=== PATIENT | male | born 1960 | race Caucasian/White ===

== ENCOUNTER 2018-04-20 12:05 | Inpatient (IN) | payer OTHER ==
[2018-04-20 12:45] LABS: ADD MAN DIFF? NO
[2018-04-20] MEDS: NITROGLYCERIN 2% 1 GM OINT PKT TD (12:46)
[2018-04-20] MEDS: NITROGLYCERIN (SL) 0.4 MG TAB SL (12:46)
[2018-04-20] MEDS: ASPIRIN 81 MG TAB PO (12:46)
[2018-04-20 13:06] LABS: WHITE BLOOD COUNT 11.6 10^3/ul (4.8-10.8)
[2018-04-20 13:06] LABS: BASOPHIL # 0.1 10^3/ul (0.0-0.1); BASOPHILS % 0.5 % (0.0-2.0); EOSINOPHILS # 0.4 10^3/ul (0.0-0.5); EOSINOPHILS % 3.5 % (0.0-7.0); HEMATOCRIT 39.7 % (42.0-52.0); HEMOGLOBIN 13.1 g/dl (14.0-18.0); LYMPHOCYTES # 1.7 10^3/ul (0.8-2.9); LYMPHOCYTES % 15.1 % (15.0-51.0); MEAN CORPUSCULAR HEMOGLOBIN 31.2 pg (29.0-33.0); MEAN CORPUSCULAR VOLUME 94.5 fl (82.0-101.0); MEAN PLATELET VOLUME 8.6 fl (7.4-10.4); MONOCYTE # 0.9 10^3/ul (0.3-0.9); NEUTROPHIL # 8.4 10^3/ul (1.6-7.5); NEUTROPHILS % 72.4 % (39.0-77.0); PLATELET COUNT 294 10^3/UL (140-415); RED CELL DISTRIBUTION WIDTH 13.4 % (11.5-14.5)
[2018-04-20 13:10] LABS: ANION GAP 12 (5-13); BLOOD UREA NITROGEN 28 mg/dl (7-20); CALCIUM 9.5 mg/dl (8.4-10.2); CARBON DIOXIDE 26 mmol/L (21-31); CHLORIDE 98 mmol/L (97-110); CREATININE 1.56 mg/dl (0.61-1.24); Estimated GFR 46 mL/min (>60); GLUCOSE 162 mg/dl (70-220); POTASSIUM 3.9 mmol/L (3.5-5.1); SODIUM 136 mmol/L (135-144)
[2018-04-20 13:22] LABS: TROPONIN-I < 0.012 ng/ml (0.000-0.120)
[2018-04-20] MEDS ORDERED: ACETAMINOPHEN 325 MG TAB PO (13:30)
[2018-04-20] MEDS ORDERED: ONDANSETRON 4 MG INJ IV (13:30)
[2018-04-20] MEDS ORDERED: ATENOLOL 50 MG TAB PO (17:00)
[2018-04-20] MEDS ORDERED: NITROGLYCERIN (SL) 0.4 MG TAB SL (17:00)
[2018-04-20] MEDS ORDERED: GLUCOSE GEL 15 GRAM TUBE BUCCAL (17:30)
[2018-04-20] MEDS ORDERED: GLUCAGON 1 MG INJ IM (17:30)
[2018-04-20] MEDS ORDERED: GLUCOSE GEL 15 GRAM TUBE PO ×2 (17:30)
[2018-04-20] MEDS ORDERED: DEXTROSE 50% 50 ML SYRINGE IV ×2 (17:30)
[2018-04-20] MEDS: SOD CHLORIDE 0.45% 1,000 ML IV (18:49)
[2018-04-20 19:33] LABS: CREATINE KINASE 119 IU/L (23-200)
[2018-04-20 19:44] LABS: CK INDEX 1.3; TROPONIN-I < 0.012 ng/ml (0.000-0.120)
[2018-04-20 19:44] LABS: TROPONIN-I < 0.012 ng/ml (0.000-0.120)
[2018-04-20] MEDS: MONTELUKAST 10 MG TAB PO (21:13)
[2018-04-20] MEDS: ZOLPIDEM 5 MG TAB PO (21:13)
[2018-04-21 01:21] LABS: CREATINE KINASE 104 IU/L (23-200)
[2018-04-21 01:35] LABS: CK INDEX 1.1; CK-MB 1.11 ng/ml (0.0-2.4); TROPONIN-I < 0.012 ng/ml (0.000-0.120)
[2018-04-21] MEDS: SOD CHLORIDE 0.45% 1,000 ML IV ×2 (07:18→19:26)
[2018-04-21 07:26] LABS: ALANINE AMINOTRANSFERASE 18 IU/L (13-69); ALBUMIN 4.4 g/dl (3.3-4.9); ALBUMIN/GLOBULIN RATIO 1.22; ALKALINE PHOSPHATASE 119 IU/L (42-121); ANION GAP 11 (5-13); ASPARTATE AMINO TRANSFERASE 16 IU/L (15-46); BILIRUBIN,INDIRECT 0.6 mg/dl (0-1.1); BILIRUBIN,TOTAL 0.6 mg/dl (0.2-1.3); BLOOD UREA NITROGEN 25 mg/dl (7-20); CALCIUM 9.6 mg/dl (8.4-10.2); CARBON DIOXIDE 29 mmol/L (21-31); CHLORIDE 98 mmol/L (97-110); CREATININE 1.44 mg/dl (0.61-1.24); Estimated GFR 50 mL/min (>60); GLUCOSE 154 mg/dl (70-220); POTASSIUM 4.1 mmol/L (3.5-5.1); SODIUM 138 mmol/L (135-144)
[2018-04-21 07:39] LABS: TROPONIN-I < 0.012 ng/ml (0.000-0.120)
[2018-04-21 08:13] LABS: CHOLESTEROL 194 mg/dl (100-200)
[2018-04-21 08:13] LABS: CHOL/HDL RATIO 5.2 RATIO; HDL CHOLESTEROL 37 mg/dl (30-78); LDL CHOLESTEROL,CALCULATED 112 mg/dl; TRIGLYCERIDES 226 mg/dl (0-149)
[2018-04-21] MEDS: DULOXETINE 30 MG CAP DR PO (08:54)
[2018-04-21] MEDS: metFORMIN (XR) 500 MG TAB PO (08:54)
[2018-04-21] MEDS: PANTOPRAZOLE (EC) 40 MG TAB PO (08:54)
[2018-04-21] MEDS: CHOLECALCIFEROL 1,000 UNIT TAB PO (08:54)
[2018-04-21] MEDS: ATENOLOL 50 MG TAB PO (08:56)
[2018-04-21] MEDS: ASPIRIN (EC) 325 MG TAB PO (08:56)
[2018-04-21 08:58] LABS: HEMOGLOBIN A1C 7.3 % (0-5.9)
[2018-04-21] MEDS ORDERED: CHLORTHALIDONE 25 MG TAB PO (09:00)
[2018-04-21] MEDS: MONTELUKAST 10 MG TAB PO (20:09)
[2018-04-21] MEDS: ZOLPIDEM 5 MG TAB PO (20:09)
[2018-04-22 06:35] LABS: ADD MAN DIFF? NO
[2018-04-22 06:51] LABS: WHITE BLOOD COUNT 9.7 10^3/ul (4.8-10.8)
[2018-04-22 06:51] LABS: BASOPHIL # 0.1 10^3/ul (0.0-0.1); BASOPHILS % 0.7 % (0.0-2.0); EOSINOPHILS # 0.6 10^3/ul (0.0-0.5); EOSINOPHILS % 5.8 % (0.0-7.0); HEMATOCRIT 41.1 % (42.0-52.0); HEMOGLOBIN 13.5 g/dl (14.0-18.0); LYMPHOCYTES # 1.8 10^3/ul (0.8-2.9); LYMPHOCYTES % 18.2 % (15.0-51.0); MEAN CORPUSCULAR HEMOGLOBIN 31.1 pg (29.0-33.0); MEAN CORPUSCULAR HGB CONC 32.8 g/dl (32.0-37.0); MEAN CORPUSCULAR VOLUME 94.7 fl (82.0-101.0); MEAN PLATELET VOLUME 9.2 fl (7.4-10.4); MONOCYTE # 1.1 10^3/ul (0.3-0.9); NEUTROPHIL # 6.2 10^3/ul (1.6-7.5); NEUTROPHILS % 63.9 % (39.0-77.0); PLATELET COUNT 291 10^3/UL (140-415); RED BLOOD COUNT 4.34 10^6/ul (4.70-6.10); RED CELL DISTRIBUTION WIDTH 13.4 % (11.5-14.5)
[2018-04-22 07:04] LABS: ANION GAP 12 (5-13); BLOOD UREA NITROGEN 22 mg/dl (7-20); CALCIUM 9.5 mg/dl (8.4-10.2); CARBON DIOXIDE 27 mmol/L (21-31); CHLORIDE 101 mmol/L (97-110); CREATININE 1.28 mg/dl (0.61-1.24); Estimated GFR 58 mL/min (>60); GLUCOSE 145 mg/dl (70-220); POTASSIUM 4.1 mmol/L (3.5-5.1); SODIUM 140 mmol/L (135-144)
[2018-04-22] MEDS: REGADENOSON 0.4 MG/5 ML SYG (09:07)
[2018-04-22] MEDS: PANTOPRAZOLE (EC) 40 MG TAB PO (10:22)
[2018-04-22] MEDS: DULOXETINE 30 MG CAP DR PO (10:23)
[2018-04-22] MEDS: CHOLECALCIFEROL 1,000 UNIT TAB PO (10:23)
[2018-04-22] MEDS: ATENOLOL 50 MG TAB PO (10:23)
[2018-04-22] MEDS: metFORMIN (XR) 500 MG TAB PO (10:23)
[2018-04-22] MEDS: ASPIRIN (EC) 325 MG TAB PO (10:23)
[2018-04-22] MEDS: hydrALAzine 20 MG INJ IV (15:59)
[2018-04-22] MEDS: MONTELUKAST 10 MG TAB PO (19:51)
[2018-04-22] MEDS: ZOLPIDEM 5 MG TAB PO (19:53)
[2018-04-23] MEDS: metFORMIN (XR) 500 MG TAB PO (08:12)
[2018-04-23] MEDS: ASPIRIN (EC) 325 MG TAB PO (08:13)
[2018-04-23] MEDS: PANTOPRAZOLE (EC) 40 MG TAB PO (08:13)
[2018-04-23] MEDS: DULOXETINE 30 MG CAP DR PO (08:13)
[2018-04-23] MEDS: CHOLECALCIFEROL 1,000 UNIT TAB PO (08:13)
[2018-04-23] MEDS: ATENOLOL 50 MG TAB PO (08:14)
[2018-04-23] MEDS ORDERED: IODIXANOL LOCM 100 ML BTL (12:40)
[2018-04-23] MEDS ORDERED: LIDOCAINE 1% (MDV) 20 ML INJ (12:40)
[2018-04-23] MEDS ORDERED: HEPARIN 1000 UNITS/ML 10 ML INJ (12:40)
[2018-04-23] MEDS ORDERED: NITROGLYCERIN (IC) 100 MCG/ML INJ (12:41)
[2018-04-23] MEDS ORDERED: FENTAnyl 50 MCG/ML VIAL (12:41)
[2018-04-23] MEDS ORDERED: MIDAZOLAM 1 MG/ML 2 ML INJ (12:41)
[2018-04-23] MEDS ORDERED: VERAPAMIL 5 MG INJ (12:42)
[2018-04-23] MEDS: SOD CHLORIDE 0.9% 1,000 ML IV (13:24)
[2018-04-23] MEDS ORDERED: ACETAMINOPHEN 325 MG TAB PO (13:30)
[2018-04-23] MEDS ORDERED: morphine 2 MG INJ IV (13:30)
[2018-04-23] MEDS ORDERED: AL HYDROX/MG HYDROX/SIMETH 30 ML CUP PO (13:30)
[2018-04-23] MEDS ORDERED: ONDANSETRON 4 MG INJ IV (13:30)
[2018-04-23] MEDS: MONTELUKAST 10 MG TAB PO (21:29)
[2018-04-23] MEDS: ZOLPIDEM 5 MG TAB PO (21:29)
[2018-04-24] MEDS: hydrALAzine 20 MG INJ IV (00:31)
[2018-04-24] MEDS: PANTOPRAZOLE (EC) 40 MG TAB PO (08:20)
[2018-04-24] MEDS: ASPIRIN (EC) 325 MG TAB PO (08:20)
[2018-04-24] MEDS: ATENOLOL 50 MG TAB PO (08:21)
[2018-04-24] MEDS: DULOXETINE 30 MG CAP DR PO (08:21)
[2018-04-24] MEDS: CHOLECALCIFEROL 1,000 UNIT TAB PO (08:21)
[2018-04-24] MEDS: metFORMIN (XR) 500 MG TAB PO (08:23)
== END 2018-04-24 19:22 | disposition home or self-care (01) | DRG 287 ==
LOC: E/R 12:05 → TEL 13:31
PROC: 4A023N7 Measurement of Cardiac Sampling and Pressure, Left Heart, Percutaneous Approach (ICD-10-PCS; principal; 2018-04-23 12:00)
PROC: B211YZZ Fluoroscopy of Multiple Coronary Arteries using Other Contrast (ICD-10-PCS; 2018-04-23 12:00)
PROC: 4A02XM4 Measurement of Cardiac Total Activity, External Approach (ICD-10-PCS; 2018-04-23 12:30)
PROC: 3E033HZ Introduction of Radioactive Substance into Peripheral Vein, Percutaneous Approach (ICD-10-PCS; 2018-04-23 12:30)
PROC: C22G1ZZ Tomographic (Tomo) Nuclear Medicine Imaging of Myocardium using Technetium 99m (Tc-99m) (ICD-10-PCS; 2018-04-23 12:30)
DX: I25.10 Atherosclerotic heart disease of native coronary artery without angina pectoris (principal); E78.5 Hyperlipidemia, unspecified; K40.90 Unilateral inguinal hernia, without obstruction or gangrene, not specified as recurrent; I25.82 Chronic total occlusion of coronary artery; I10 Essential (primary) hypertension; E11.9 Type 2 diabetes mellitus without complications; N28.9 Disorder of kidney and ureter, unspecified
CPT/HCPCS: 36415; 71045; 78452; 80048; 80053; 80061; 82550; 82553; 82962; 83036; 84443; 84484; 85025; 93005; 93017; 93306; 93458; 99285-25; G0378

== ENCOUNTER 2018-05-01 08:29 | Day surgery (SDC) | payer OTHER ==
[2018-04-30 10:47] LABS: ADD MAN DIFF? NO
[2018-04-30 10:51] LABS: WHITE BLOOD COUNT 7.6 10^3/ul (4.8-10.8)
[2018-04-30 10:51] LABS: BASOPHIL # 0.1 10^3/ul (0.0-0.1); EOSINOPHILS # 0.2 10^3/ul (0.0-0.5); EOSINOPHILS % 2.6 % (0.0-7.0); HEMATOCRIT 40.7 % (42.0-52.0); HEMOGLOBIN 13.3 g/dl (14.0-18.0); LYMPHOCYTES # 1.5 10^3/ul (0.8-2.9); MEAN CORPUSCULAR HEMOGLOBIN 30.7 pg (29.0-33.0); MEAN CORPUSCULAR HGB CONC 32.7 g/dl (32.0-37.0); MEAN PLATELET VOLUME 8.9 fl (7.4-10.4); MONOCYTE # 0.6 10^3/ul (0.3-0.9); MONOCYTES % 7.6 % (0.0-11.0); NEUTROPHIL # 5.2 10^3/ul (1.6-7.5); NEUTROPHILS % 68.3 % (39.0-77.0); PLATELET COUNT 358 10^3/UL (140-415); RED BLOOD COUNT 4.33 10^6/ul (4.70-6.10); RED CELL DISTRIBUTION WIDTH 13.3 % (11.5-14.5)
[2018-04-30 10:56] LABS: ANION GAP 12 (5-13); BLOOD UREA NITROGEN 19 mg/dl (7-20); CALCIUM 9.8 mg/dl (8.4-10.2); CARBON DIOXIDE 26 mmol/L (21-31); CHLORIDE 105 mmol/L (97-110); CREATININE 1.28 mg/dl (0.61-1.24); Estimated GFR 58 mL/min (>60); GLUCOSE 133 mg/dl (70-220); POTASSIUM 4.1 mmol/L (3.5-5.1); SODIUM 143 mmol/L (135-144)
[2018-04-30 10:59] LABS: INR 1.01; PROTIME 13.4 Sec (11.9-14.9)
[2018-04-30 11:00] LABS: PARTIAL THROMBOPLASTIN TIME 29.5 Sec (23.0-35.0)
[2018-05-01] MEDS ORDERED: INSULIN HUMAN REGULAR 100 UNIT in SOD CHLORIDE 0.9% 99 ML IV (10:00)
[2018-05-01] MEDS ORDERED: EPINEPHrine 4 MG in DEXTROSE 5% 246 ML IV (10:00)
[2018-05-01] MEDS ORDERED: PHENYLephrine 20MG IN 250 ML 250 ML IV (10:00)
[2018-05-01 10:14] LABS: ADD UMIC YES; UR ASCORBIC ACID NEGATIVE (NEGATIVE); UR BACTERIA FEW /HPF (NONE SEEN); UR BILIRUBIN (Dip) NEGATIVE (NEGATIVE); UR BLOOD (Dip) NEGATIVE (NEGATIVE); UR CLARITY CLOUDY (CLEAR); UR COLOR YELLOW (YELLOW); UR GLUCOSE (Dip) NEGATIVE (NEGATIVE); UR KETONES (Dip) NEGATIVE (NEGATIVE); UR LEUKOCYTE ESTERASE (Dip) 2+ Leu/ul (NEGATIVE); UR MUCUS FEW /HPF (NONE SEEN); UR NITRITE (Dip) NEGATIVE (NEGATIVE); UR RBC 7 /HPF (0-5); UR SPECIFIC GRAVITY (Dip) 1.015 (1.003-1.030); UR SQUAMOUS EPITHELIAL CELL FEW /HPF (FEW); UR TOTAL PROTEIN (Dip) NEGATIVE (NEGATIVE); UR UROBILINOGEN (Dip) NEGATIVE (NEGATIVE); UR WBC 80 /HPF (0-5)
[2018-05-01] MEDS: PHENYLephrine 0.25% 15 ML NAS SPRAY NASAL (11:03)
[2018-05-05] MEDS ORDERED: INFLUENZA VIRUS VACCINE 0.5 ML (DISPENSING) IM* (10:00)
== END 2018-05-01 12:00 | disposition home or self-care (01) ==
LOC: REC 08:29 → SDS 08:29
DX: R07.9 Chest pain, unspecified (principal); Z53.8 Procedure and treatment not carried out for other reasons
CPT/HCPCS: 80048; 81001; 82962; 85025; 85610; 85730; 86850; 86900; 86901; 86920

== ENCOUNTER 2018-07-31 05:18 | Inpatient (IN) | payer OTHER ==
[2018-07-31] MEDS ORDERED: ROCURONIUM 50 MG INJ ×2 (06:37→10:40)
[2018-07-31] MEDS ORDERED: SUCCINYLCHOLINE CHLORIDE 100 MG/5 ML SYG IV (06:37)
[2018-07-31] MEDS ORDERED: MIDAZOLAM 1 MG/ML 2 ML INJ ×2 (06:38)
[2018-07-31] MEDS ORDERED: PHENYLephrine (100 MCG/ML) 10ML SYG (06:42)
[2018-07-31] MEDS ORDERED: HEPARIN 10,000 UNITS/ML 1 ML INJ (06:44)
[2018-07-31] MEDS ORDERED: CEFAZOLIN 1 GM INJ (06:47)
[2018-07-31] MEDS ORDERED: LIDOCAINE 2% (SDV) 5 ML INJ (06:51)
[2018-07-31] MEDS ORDERED: INSULIN HUMAN REGULAR 100 UNIT in SOD CHLORIDE 0.9% 99 ML IV (07:30)
[2018-07-31] MEDS ORDERED: EPINEPHrine 4 MG in DEXTROSE 5% 246 ML IV (07:30)
[2018-07-31] MEDS ORDERED: PHENYLephrine 20MG IN 250 ML 250 ML IV ×2 (07:30→22:30)
[2018-07-31] MEDS ORDERED: SOD CHLORIDE 0.9% 1,000 ML IV (07:30)
[2018-07-31] MEDS ORDERED: AMINOCAPROIC ACID 5 GM INJ ×3 (07:45→08:44)
[2018-07-31] MEDS ORDERED: CA CHLORIDE 10% 10 ML SYRINGE (08:43)
[2018-07-31] MEDS ORDERED: PHENYLephrine 10 MG INJ (08:43)
[2018-07-31] MEDS ORDERED: LIDOCAINE 100 MG SYRINGE (08:43)
[2018-07-31] MEDS ORDERED: NA BICARBONATE 8.4% 50 ML SYG ×2 (08:43→10:27)
[2018-07-31] MEDS ORDERED: FUROSEMIDE 20 MG INJ (08:44)
[2018-07-31] MEDS ORDERED: ALBUMIN HUMAN 25% 100 ML (08:44)
[2018-07-31] MEDS ORDERED: POTASSIUM CHLORIDE 40 MEQ INJ (08:44)
[2018-07-31] MEDS ORDERED: MANNITOL 20% 500 ML (08:44)
[2018-07-31] MEDS ORDERED: NORepinephrine 4 MG INJ (08:44)
[2018-07-31] MEDS ORDERED: MAGNESIUM SULFATE (MG) 50% 10 ML INJ (08:44)
[2018-07-31] MEDS ORDERED: HEPARIN 1000 UNITS/ML 10 ML INJ (09:15)
[2018-07-31] MEDS ORDERED: hydrALAzine 20 MG INJ (09:19)
[2018-07-31] MEDS: HEPARIN 1000 UNITS/ML 10 ML INJ (09:59)
[2018-07-31] MEDS: VANCOMYCIN 1 GM INJ (09:59)
[2018-07-31] MEDS: PAPAVERINE 60 MG INJ (10:00)
[2018-07-31] MEDS ORDERED: PROTAMINE 250 MG INJ (10:32)
[2018-07-31 11:51] LABS: TYPE AND SCREEN 1
[2018-07-31 12:24] LABS: IMMEDIATE SPIN CROSSMATCH 1 6
[2018-07-31] MEDS: NITROGLYCERIN 50 MG/D5W (PMX) 250 ML IV (13:15)
[2018-07-31 14:19] LABS: ADD MAN DIFF? NO
[2018-07-31 14:20] LABS: AADO2 Arterial 200.8 mmHg (7.0-24.0); Allen Test ACCEPTAB; Arterial Base Excess -6.1 mmol/L (-3.0-3); Arterial Blood Gas Oxygen Sat 96.7 mmHG (95.0-98.0); Arterial COHb 0.3 % (0.0-3.0); Arterial Fraction of Oxyhgb 96.1 % (93.0-99.0); Arterial HCO3 20.5 mmol/L (22.0-26.0); Arterial MetHb 0.3 % (0.0-1.5); Arterial pCO2 44.8 mmhg (35-45); MODE VENT - AC; Site A-Line
[2018-07-31 14:21] LABS: MetHgb Mixed Venous 0.3 %; Mixed Venous COHb 0.2 %; Mixed Venous Fraction OxyHgb 75.2 %; Mixed Venous Oxygen Sat 75.6 mmHG (65.0-75.0); Mixed Venous Total Hemglobin 11.3 g/dl; Sample Type BLMV; Site OTHER
[2018-07-31 14:22] LABS: MODE VENT - AC
[2018-07-31 14:23] LABS: ABNORMAL IP MESSAGE 1; BASOPHIL # 0.1 10^3/ul (0.0-0.1); BASOPHILS % 0.3 % (0.0-2.0); EOSINOPHILS % 0.2 % (0.0-7.0); HEMATOCRIT 31.7 % (42.0-52.0); HEMOGLOBIN 10.3 g/dl (14.0-18.0); LYMPHOCYTES # 1.2 10^3/ul (0.8-2.9); LYMPHOCYTES % 5.2 % (15.0-51.0); MEAN CORPUSCULAR HEMOGLOBIN 29.3 pg (29.0-33.0); MEAN CORPUSCULAR HGB CONC 32.5 g/dl (32.0-37.0); MEAN CORPUSCULAR VOLUME 90.1 fl (82.0-101.0); MEAN PLATELET VOLUME 9.1 fl (7.4-10.4); MONOCYTE # 1.7 10^3/ul (0.3-0.9); MONOCYTES % 7.1 % (0.0-11.0); NEUTROPHIL # 20.4 10^3/ul (1.6-7.5); NEUTROPHILS % 86.7 % (39.0-77.0); PLATELET COUNT 206 10^3/UL (140-415); POSITIVE DIFF @See below; RED BLOOD COUNT 3.52 10^6/ul (4.70-6.10); RED CELL DISTRIBUTION WIDTH 13.5 % (11.5-14.5)
[2018-07-31 14:23] LABS: WHITE BLOOD COUNT 23.6 10^3/ul (4.8-10.8)
[2018-07-31 14:43] LABS: ALANINE AMINOTRANSFERASE 22 IU/L (13-69); ALKALINE PHOSPHATASE 72 IU/L (42-121); ANION GAP 9 (5-13); ASPARTATE AMINO TRANSFERASE 33 IU/L (15-46); BILIRUBIN,INDIRECT 0.9 mg/dl (0-1.1); BILIRUBIN,TOTAL 0.9 mg/dl (0.2-1.3); BLOOD UREA NITROGEN 22 mg/dl (7-20); CALCIUM 8.5 mg/dl (8.4-10.2); CARBON DIOXIDE 21 mmol/L (21-31); CHLORIDE 112 mmol/L (97-110); CREATININE 1.11 mg/dl (0.61-1.24); Estimated GFR > 60 mL/min (>60); GLUCOSE 182 mg/dl (70-220); MAGNESIUM 2.9 mg/dl (1.7-2.5); PHOSPHORUS 2.5 mg/dl (2.5-4.9); POTASSIUM 4.4 mmol/L (3.5-5.1); SODIUM 142 mmol/L (135-144)
[2018-07-31 14:44] LABS: ALBUMIN 3.5 g/dl (3.3-4.9); ALBUMIN/GLOBULIN RATIO 1.25; TOTAL PROTEIN 6.3 g/dl (6.1-8.1)
[2018-07-31 14:52] LABS: INR 1.26; PARTIAL THROMBOPLASTIN TIME 38.1 Sec (23.0-35.0); PROTIME 15.9 Sec (11.9-14.9); PT RATIO 1.2
[2018-07-31] MEDS ORDERED: DEXTROSE 50% 50 ML SYRINGE IV ×2 (16:00)
[2018-07-31] MEDS: HYDROmorphONE 0.5 MG/0.5 ML SYG IV ×6 (16:22→23:06)
[2018-07-31] MEDS: INSULIN HUMAN REGULAR 100 UNIT in SOD CHLORIDE 0.9% 99 ML IV (16:31)
[2018-07-31] MEDS: ACCU-CHEK XX ×8 (16:43→22:59)
[2018-07-31] MEDS: CEFAZOLIN 1 GM/50 ML (PMX) 50 ML IVPB (16:44)
[2018-07-31] MEDS: POTASSIUM CHLORIDE 40 MEQ, CALCIUM CHLORIDE 10% 1 GM in DEXTROSE 5%-0.225% NACL 1,000 ML IV (17:29)
[2018-07-31] MEDS: POTASSIUM CHLORIDE 50 ML IVPB (17:33)
[2018-07-31 19:36] LABS: AADO2 Arterial 59.3 mmHg (7.0-24.0); Arterial Base Excess -7.6 mmol/L (-3.0-3); Arterial Blood Gas Oxygen Sat 96.5 mmHG (95.0-98.0); Arterial COHb 0.3 % (0.0-3.0); Arterial HCO3 19.2 mmol/L (22.0-26.0); Arterial MetHb 0.2 % (0.0-1.5); Arterial pCO2 44.5 mmhg (35-45); Blood Gas PS 10; MODE VENT - CPAP; Site A-Line
[2018-07-31 19:52] LABS: ADD MAN DIFF? NO
[2018-07-31 19:57] LABS: WHITE BLOOD COUNT 17.4 10^3/ul (4.8-10.8)
[2018-07-31 19:57] LABS: ABNORMAL IP MESSAGE 1; BASOPHILS % 0.1 % (0.0-2.0); HEMATOCRIT 30.9 % (42.0-52.0); HEMOGLOBIN 10.1 g/dl (14.0-18.0); LYMPHOCYTES # 0.5 10^3/ul (0.8-2.9); MEAN CORPUSCULAR HEMOGLOBIN 29.9 pg (29.0-33.0); MEAN CORPUSCULAR HGB CONC 32.7 g/dl (32.0-37.0); MEAN CORPUSCULAR VOLUME 91.4 fl (82.0-101.0); MEAN PLATELET VOLUME 9.3 fl (7.4-10.4); MONOCYTE # 1.1 10^3/ul (0.3-0.9); MONOCYTES % 6.6 % (0.0-11.0); NEUTROPHIL # 15.7 10^3/ul (1.6-7.5); PLATELET COUNT 200 10^3/UL (140-415); POSITIVE DIFF @See below; RED BLOOD COUNT 3.38 10^6/ul (4.70-6.10); RED CELL DISTRIBUTION WIDTH 13.6 % (11.5-14.5)
[2018-07-31 20:13] LABS: ANION GAP 9 (5-13); BLOOD UREA NITROGEN 21 mg/dl (7-20); CALCIUM 8.7 mg/dl (8.4-10.2); CARBON DIOXIDE 22 mmol/L (21-31); CHLORIDE 112 mmol/L (97-110); CREATININE 1.14 mg/dl (0.61-1.24); Estimated GFR > 60 mL/min (>60); GLUCOSE 176 mg/dl (70-220); MAGNESIUM 2.5 mg/dl (1.7-2.5); PHOSPHORUS 2.5 mg/dl (2.5-4.9); POTASSIUM 4.1 mmol/L (3.5-5.1); SODIUM 143 mmol/L (135-144)
[2018-07-31 20:17] LABS: INR 1.24; PROTIME 15.7 Sec (11.9-14.9); PT RATIO 1.2
[2018-07-31 20:18] LABS: PARTIAL THROMBOPLASTIN TIME 28.2 Sec (23.0-35.0)
[2018-07-31] MEDS: ONDANSETRON 4 MG INJ IV (21:15)
[2018-07-31] MEDS: FAMOTIDINE 20 MG INJ IV (21:15)
[2018-07-31] MEDS: OXYCODONE/ACETAMINOPHEN (5/325) TAB PO (21:47)
[2018-08-01] MEDS: CEFAZOLIN 1 GM/50 ML (PMX) 50 ML IVPB ×2 (00:07→06:40)
[2018-08-01] MEDS: ACCU-CHEK XX ×12 (00:15→11:00)
[2018-08-01] MEDS: HYDROmorphONE 0.5 MG/0.5 ML SYG IV ×6 (00:49→21:09)
[2018-08-01] MEDS: POTASSIUM CHLORIDE 50 ML IVPB ×2 (01:54→10:10)
[2018-08-01 05:25] LABS: ADD MAN DIFF? NO
[2018-08-01 05:29] LABS: ABNORMAL IP MESSAGE 1; BASOPHILS % 0.1 % (0.0-2.0); HEMATOCRIT 31.4 % (42.0-52.0); HEMOGLOBIN 10.1 g/dl (14.0-18.0); LYMPHOCYTES # 0.7 10^3/ul (0.8-2.9); LYMPHOCYTES % 3.6 % (15.0-51.0); MEAN CORPUSCULAR HEMOGLOBIN 29.1 pg (29.0-33.0); MEAN CORPUSCULAR HGB CONC 32.2 g/dl (32.0-37.0); MEAN CORPUSCULAR VOLUME 90.5 fl (82.0-101.0); MEAN PLATELET VOLUME 9.6 fl (7.4-10.4); MONOCYTE # 1.6 10^3/ul (0.3-0.9); MONOCYTES % 8.1 % (0.0-11.0); NEUTROPHIL # 16.7 10^3/ul (1.6-7.5); NEUTROPHILS % 87.7 % (39.0-77.0); PLATELET COUNT 202 10^3/UL (140-415); POSITIVE DIFF @See below; RED BLOOD COUNT 3.47 10^6/ul (4.70-6.10); RED CELL DISTRIBUTION WIDTH 13.7 % (11.5-14.5)
[2018-08-01 05:29] LABS: WHITE BLOOD COUNT 19.1 10^3/ul (4.8-10.8)
[2018-08-01 05:35] LABS: AADO2 Arterial 164.8 mmHg (7.0-24.0); Arterial Base Excess -6.2 mmol/L (-3.0-3); Arterial Blood Gas Oxygen Sat 89.6 mmHG (95.0-98.0); Arterial COHb 0.3 % (0.0-3.0); Arterial Fraction of Oxyhgb 89.2 % (93.0-99.0); Arterial HCO3 20.3 mmol/L (22.0-26.0); Arterial MetHb 0.1 % (0.0-1.5); MODE NASAL CANNULA; Site A-Line
[2018-08-01 05:50] LABS: ANION GAP 10 (5-13); BLOOD UREA NITROGEN 21 mg/dl (7-20); CALCIUM 9.1 mg/dl (8.4-10.2); CARBON DIOXIDE 23 mmol/L (21-31); CHLORIDE 113 mmol/L (97-110); CREATININE 1.08 mg/dl (0.61-1.24); Estimated GFR > 60 mL/min (>60); GLUCOSE 116 mg/dl (70-220); MAGNESIUM 2.3 mg/dl (1.7-2.5); POTASSIUM 4.4 mmol/L (3.5-5.1); SODIUM 146 mmol/L (135-144)
[2018-08-01 05:54] LABS: INR 1.17; PT RATIO 1.2
[2018-08-01 05:56] LABS: PARTIAL THROMBOPLASTIN TIME 28.3 Sec (23.0-35.0)
[2018-08-01] MEDS: INSULIN HUMAN REGULAR 100 UNIT in SOD CHLORIDE 0.9% 99 ML IV (07:21)
[2018-08-01] MEDS: POTASSIUM CHLORIDE 40 MEQ, CALCIUM CHLORIDE 10% 1 GM in DEXTROSE 5%-0.225% NACL 1,000 ML IV ×2 (08:18→10:17)
[2018-08-01] MEDS ORDERED: DEXTROSE 50% 50 ML SYRINGE IV ×2 (13:00)
[2018-08-01] MEDS ORDERED: GLUCAGON 1 MG INJ IM (13:00)
[2018-08-01] MEDS ORDERED: GLUCOSE GEL 15 GRAM TUBE BUCCAL (13:00)
[2018-08-01] MEDS ORDERED: GLUCOSE GEL 15 GRAM TUBE PO ×2 (13:00)
[2018-08-01] MEDS: FAMOTIDINE 20 MG INJ IV ×2 (13:10→20:06)
[2018-08-01] MEDS: INSULIN ASPART [NOVOLOG] 3 ML PEN SC ×3 (17:29→20:52)
[2018-08-01] MEDS: INSULIN GLARGINE [LANTus] (100 UNITS/ML) SYG SC (20:08)
[2018-08-01] MEDS: METOPROLOL 25 MG TAB PO (20:57)
[2018-08-01] MEDS: OXYCODONE/ACETAMINOPHEN (5/325) TAB PO (23:11)
[2018-08-02] MEDS: HYDROmorphONE 0.5 MG/0.5 ML SYG IV ×5 (01:25→16:14)
[2018-08-02] MEDS: ACCU-CHEK XX (01:28)
[2018-08-02] MEDS: OXYCODONE/ACETAMINOPHEN (5/325) TAB PO ×2 (03:37→19:59)
[2018-08-02] MEDS: POTASSIUM CHLORIDE 40 MEQ, CALCIUM CHLORIDE 10% 1 GM in DEXTROSE 5%-0.225% NACL 1,000 ML IV (05:00)
[2018-08-02 05:15] LABS: ADD MAN DIFF? NO
[2018-08-02 05:21] LABS: ABNORMAL IP MESSAGE 1; BASOPHILS % 0.2 % (0.0-2.0); HEMATOCRIT 31.7 % (42.0-52.0); LYMPHOCYTES # 1.2 10^3/ul (0.8-2.9); LYMPHOCYTES % 5.2 % (15.0-51.0); MEAN CORPUSCULAR HEMOGLOBIN 29.2 pg (29.0-33.0); MEAN CORPUSCULAR HGB CONC 31.5 g/dl (32.0-37.0); MEAN CORPUSCULAR VOLUME 92.7 fl (82.0-101.0); MEAN PLATELET VOLUME 9.6 fl (7.4-10.4); MONOCYTE # 1.6 10^3/ul (0.3-0.9); NEUTROPHILS % 87.1 % (39.0-77.0); PLATELET COUNT 198 10^3/UL (140-415); POSITIVE DIFF @See below; RED BLOOD COUNT 3.42 10^6/ul (4.70-6.10); RED CELL DISTRIBUTION WIDTH 14.1 % (11.5-14.5)
[2018-08-02] MEDS: PANTOPRAZOLE (EC) 40 MG TAB PO (05:34)
[2018-08-02 05:36] LABS: ANION GAP 12 (5-13); BLOOD UREA NITROGEN 22 mg/dl (7-20); CALCIUM 9.2 mg/dl (8.4-10.2); CARBON DIOXIDE 22 mmol/L (21-31); CHLORIDE 107 mmol/L (97-110); CREATININE 1.11 mg/dl (0.61-1.24); Estimated GFR > 60 mL/min (>60); GLUCOSE 145 mg/dl (70-220); POTASSIUM 4.7 mmol/L (3.5-5.1); SODIUM 141 mmol/L (135-144)
[2018-08-02] MEDS: INSULIN ASPART [NOVOLOG] 3 ML PEN SC ×7 (07:52→21:00)
[2018-08-02] MEDS: METOPROLOL 25 MG TAB PO ×2 (08:24→21:10)
[2018-08-02] MEDS: ASPIRIN 81 MG TAB PO (08:24)
[2018-08-02] MEDS: FUROSEMIDE 20 MG INJ IV (14:31)
[2018-08-02] MEDS: INSULIN GLARGINE [LANTus] (100 UNITS/ML) SYG SC (20:12)
[2018-08-02] MEDS ORDERED: ALBUTEROL/IPRATROPIUM (NEB) 3 ML AMP HHN (20:30)
[2018-08-03] MEDS: ACCU-CHEK XX (01:40)
[2018-08-03 04:48] LABS: ADD MAN DIFF? NO
[2018-08-03 04:51] LABS: BASOPHIL # 0.1 10^3/ul (0.0-0.1); BASOPHILS % 0.3 % (0.0-2.0); EOSINOPHILS # 0.1 10^3/ul (0.0-0.5); EOSINOPHILS % 0.9 % (0.0-7.0); HEMATOCRIT 29.6 % (42.0-52.0); HEMOGLOBIN 9.8 g/dl (14.0-18.0); LYMPHOCYTES # 1.2 10^3/ul (0.8-2.9); LYMPHOCYTES % 7.8 % (15.0-51.0); MEAN CORPUSCULAR HEMOGLOBIN 29.3 pg (29.0-33.0); MEAN CORPUSCULAR HGB CONC 33.1 g/dl (32.0-37.0); MEAN CORPUSCULAR VOLUME 88.6 fl (82.0-101.0); MEAN PLATELET VOLUME 9.4 fl (7.4-10.4); MONOCYTE # 0.9 10^3/ul (0.3-0.9); NEUTROPHIL # 12.7 10^3/ul (1.6-7.5); NEUTROPHILS % 84.4 % (39.0-77.0); PLATELET COUNT 180 10^3/UL (140-415); RED BLOOD COUNT 3.34 10^6/ul (4.70-6.10)
[2018-08-03 05:12] LABS: ANION GAP 9 (5-13); BLOOD UREA NITROGEN 23 mg/dl (7-20); CALCIUM 9.4 mg/dl (8.4-10.2); CARBON DIOXIDE 27 mmol/L (21-31); CHLORIDE 102 mmol/L (97-110); CREATININE 1.04 mg/dl (0.61-1.24); Estimated GFR > 60 mL/min (>60); GLUCOSE 144 mg/dl (70-220); POTASSIUM 4.5 mmol/L (3.5-5.1); SODIUM 138 mmol/L (135-144)
[2018-08-03] MEDS: INSULIN ASPART [NOVOLOG] 3 ML PEN SC ×7 (07:35→21:00)
[2018-08-03] MEDS: ASPIRIN 81 MG TAB PO (08:28)
[2018-08-03] MEDS: PANTOPRAZOLE (EC) 40 MG TAB PO (08:28)
[2018-08-03] MEDS: METOPROLOL 25 MG TAB PO ×2 (08:28→21:06)
[2018-08-03 08:29] LABS: MAGNESIUM 1.8 mg/dl (1.7-2.5)
[2018-08-03] MEDS: INSULIN GLARGINE [LANTus] (100 UNITS/ML) SYG SC (21:16)
[2018-08-03] MEDS: HYDROmorphONE 0.5 MG/0.5 ML SYG IV (22:37)
[2018-08-03] MEDS: MAGNESIUM SULFATE 1 GM/D5W 100 ML IVPB (23:50)
[2018-08-04] MEDS: MAGNESIUM SULFATE 1 GM/D5W 100 ML IVPB (00:43)
[2018-08-04] MEDS: ACCU-CHEK XX (02:00)
[2018-08-04] MEDS: PANTOPRAZOLE (EC) 40 MG TAB PO (05:21)
[2018-08-04 05:39] LABS: ADD MAN DIFF? NO
[2018-08-04 05:45] LABS: BASOPHILS % 0.3 % (0.0-2.0); EOSINOPHILS # 0.3 10^3/ul (0.0-0.5); HEMATOCRIT 27.6 % (42.0-52.0); HEMOGLOBIN 9.1 g/dl (14.0-18.0); LYMPHOCYTES # 1.6 10^3/ul (0.8-2.9); LYMPHOCYTES % 11.3 % (15.0-51.0); MEAN CORPUSCULAR HEMOGLOBIN 29.2 pg (29.0-33.0); MEAN CORPUSCULAR VOLUME 88.5 fl (82.0-101.0); MEAN PLATELET VOLUME 9.6 fl (7.4-10.4); MONOCYTE # 1.2 10^3/ul (0.3-0.9); MONOCYTES % 8.3 % (0.0-11.0); NEUTROPHIL # 11.2 10^3/ul (1.6-7.5); NEUTROPHILS % 77.6 % (39.0-77.0); PLATELET COUNT 230 10^3/UL (140-415); RED BLOOD COUNT 3.12 10^6/ul (4.70-6.10); RED CELL DISTRIBUTION WIDTH 13.9 % (11.5-14.5)
[2018-08-04 05:45] LABS: WHITE BLOOD COUNT 14.4 10^3/ul (4.8-10.8)
[2018-08-04 06:21] LABS: ANION GAP 10 (5-13); BLOOD UREA NITROGEN 20 mg/dl (7-20); CALCIUM 8.7 mg/dl (8.4-10.2); CARBON DIOXIDE 26 mmol/L (21-31); CHLORIDE 103 mmol/L (97-110); CREATININE 0.93 mg/dl (0.61-1.24); Estimated GFR > 60 mL/min (>60); GLUCOSE 110 mg/dl (70-220); POTASSIUM 3.5 mmol/L (3.5-5.1); SODIUM 139 mmol/L (135-144)
[2018-08-04] MEDS: INSULIN ASPART [NOVOLOG] 3 ML PEN SC ×9 (07:35→21:00)
[2018-08-04] MEDS: METOPROLOL 25 MG TAB PO ×2 (09:00→21:57)
[2018-08-04] MEDS: ASPIRIN 81 MG TAB PO (09:46)
[2018-08-04] MEDS ORDERED: LORAZEPAM 2 MG INJ IV (19:00)
[2018-08-04] MEDS: INSULIN GLARGINE [LANTus] (100 UNITS/ML) SYG SC (22:09)
[2018-08-05] MEDS: PANTOPRAZOLE (EC) 40 MG TAB PO (06:20)
[2018-08-05 06:22] LABS: ADD MAN DIFF? NO
[2018-08-05 06:32] LABS: BASOPHILS % 0.3 % (0.0-2.0); EOSINOPHILS # 0.4 10^3/ul (0.0-0.5); EOSINOPHILS % 3.1 % (0.0-7.0); HEMATOCRIT 27.7 % (42.0-52.0); HEMOGLOBIN 9.3 g/dl (14.0-18.0); LYMPHOCYTES # 2.3 10^3/ul (0.8-2.9); LYMPHOCYTES % 18.9 % (15.0-51.0); MEAN CORPUSCULAR HEMOGLOBIN 29.1 pg (29.0-33.0); MEAN CORPUSCULAR HGB CONC 33.6 g/dl (32.0-37.0); MEAN CORPUSCULAR VOLUME 86.6 fl (82.0-101.0); MEAN PLATELET VOLUME 9.2 fl (7.4-10.4); MONOCYTE # 1.3 10^3/ul (0.3-0.9); MONOCYTES % 10.6 % (0.0-11.0); NEUTROPHILS % 66.5 % (39.0-77.0); PLATELET COUNT 281 10^3/UL (140-415)
[2018-08-05 07:02] LABS: ANION GAP 8 (5-13); BLOOD UREA NITROGEN 20 mg/dl (7-20); CALCIUM 8.6 mg/dl (8.4-10.2); CARBON DIOXIDE 27 mmol/L (21-31); CHLORIDE 106 mmol/L (97-110); CREATININE 0.92 mg/dl (0.61-1.24); Estimated GFR > 60 mL/min (>60); GLUCOSE 102 mg/dl (70-220); POTASSIUM 3.9 mmol/L (3.5-5.1); SODIUM 141 mmol/L (135-144)
[2018-08-05] MEDS: INSULIN ASPART [NOVOLOG] 3 ML PEN SC ×7 (07:55→20:52)
[2018-08-05] MEDS: METOPROLOL 25 MG TAB PO ×2 (08:27→20:48)
[2018-08-05] MEDS: ASPIRIN 81 MG TAB PO (08:27)
[2018-08-05] MEDS: INSULIN GLARGINE [LANTus] (100 UNITS/ML) SYG SC (22:08)
[2018-08-06 05:51] LABS: ADD MAN DIFF? NO
[2018-08-06 05:58] LABS: BASOPHIL # 0.1 10^3/ul (0.0-0.1); BASOPHILS % 0.4 % (0.0-2.0); EOSINOPHILS # 0.5 10^3/ul (0.0-0.5); EOSINOPHILS % 3.7 % (0.0-7.0); HEMATOCRIT 30.4 % (42.0-52.0); LYMPHOCYTES # 2.2 10^3/ul (0.8-2.9); LYMPHOCYTES % 18.1 % (15.0-51.0); MEAN CORPUSCULAR HEMOGLOBIN 28.7 pg (29.0-33.0); MEAN CORPUSCULAR HGB CONC 32.9 g/dl (32.0-37.0); MEAN CORPUSCULAR VOLUME 87.1 fl (82.0-101.0); MEAN PLATELET VOLUME 8.6 fl (7.4-10.4); MONOCYTE # 1.4 10^3/ul (0.3-0.9); MONOCYTES % 11.6 % (0.0-11.0); NEUTROPHIL # 8.1 10^3/ul (1.6-7.5); NEUTROPHILS % 65.5 % (39.0-77.0); PLATELET COUNT 322 10^3/UL (140-415); RED BLOOD COUNT 3.49 10^6/ul (4.70-6.10); RED CELL DISTRIBUTION WIDTH 14.1 % (11.5-14.5)
[2018-08-06 05:58] LABS: WHITE BLOOD COUNT 12.3 10^3/ul (4.8-10.8)
[2018-08-06] MEDS: PANTOPRAZOLE (EC) 40 MG TAB PO (06:31)
[2018-08-06 06:36] LABS: ANION GAP 10 (5-13); BLOOD UREA NITROGEN 22 mg/dl (7-20); CALCIUM 8.8 mg/dl (8.4-10.2); CARBON DIOXIDE 27 mmol/L (21-31); CHLORIDE 105 mmol/L (97-110); Estimated GFR > 60 mL/min (>60); GLUCOSE 106 mg/dl (70-220); POTASSIUM 3.7 mmol/L (3.5-5.1); SODIUM 142 mmol/L (135-144)
[2018-08-06] MEDS: INSULIN ASPART [NOVOLOG] 3 ML PEN SC ×7 (07:42→20:42)
[2018-08-06] MEDS: METOPROLOL 25 MG TAB PO ×2 (08:02→21:07)
[2018-08-06] MEDS: ASPIRIN 81 MG TAB PO (08:38)
[2018-08-06] MEDS: FUROSEMIDE 20 MG INJ IV (12:39)
[2018-08-06] MEDS: HYDROmorphONE 0.5 MG/0.5 ML SYG IV (14:40)
[2018-08-06] MEDS: INSULIN GLARGINE [LANTus] (100 UNITS/ML) SYG SC (22:51)
[2018-08-06] MEDS: OXYCODONE/ACETAMINOPHEN (5/325) TAB PO (23:39)
[2018-08-07] MEDS: PANTOPRAZOLE (EC) 40 MG TAB PO (06:00)
[2018-08-07] MEDS: INSULIN ASPART [NOVOLOG] 3 ML PEN SC ×7 (07:45→20:30)
[2018-08-07] MEDS: ASPIRIN 81 MG TAB PO (08:15)
[2018-08-07] MEDS: FUROSEMIDE 20 MG INJ IV (08:15)
[2018-08-07] MEDS: METOPROLOL 25 MG TAB PO ×2 (08:17→20:28)
[2018-08-07 08:37] LABS: ADD MAN DIFF? NO
[2018-08-07 08:45] LABS: WHITE BLOOD COUNT 11.7 10^3/ul (4.8-10.8)
[2018-08-07 08:45] LABS: BASOPHILS % 0.3 % (0.0-2.0); EOSINOPHILS # 0.5 10^3/ul (0.0-0.5); EOSINOPHILS % 4.1 % (0.0-7.0); HEMATOCRIT 29.5 % (42.0-52.0); HEMOGLOBIN 9.6 g/dl (14.0-18.0); LYMPHOCYTES % 16.9 % (15.0-51.0); MEAN CORPUSCULAR HEMOGLOBIN 29.1 pg (29.0-33.0); MEAN CORPUSCULAR HGB CONC 32.5 g/dl (32.0-37.0); MEAN CORPUSCULAR VOLUME 89.4 fl (82.0-101.0); MEAN PLATELET VOLUME 8.6 fl (7.4-10.4); MONOCYTE # 1.3 10^3/ul (0.3-0.9); MONOCYTES % 11.1 % (0.0-11.0); NEUTROPHIL # 7.8 10^3/ul (1.6-7.5); NEUTROPHILS % 66.9 % (39.0-77.0); PLATELET COUNT 343 10^3/UL (140-415); RED CELL DISTRIBUTION WIDTH 14.2 % (11.5-14.5)
[2018-08-07 09:08] LABS: ANION GAP 11 (5-13); BLOOD UREA NITROGEN 19 mg/dl (7-20); CALCIUM 8.9 mg/dl (8.4-10.2); CARBON DIOXIDE 27 mmol/L (21-31); CHLORIDE 104 mmol/L (97-110); CREATININE 1.14 mg/dl (0.61-1.24); Estimated GFR > 60 mL/min (>60); GLUCOSE 107 mg/dl (70-220); POTASSIUM 4.3 mmol/L (3.5-5.1); SODIUM 142 mmol/L (135-144)
[2018-08-07] MEDS: HYDROmorphONE 0.5 MG/0.5 ML SYG IV (14:29)
[2018-08-07] MEDS: OXYCODONE/ACETAMINOPHEN (5/325) TAB PO ×2 (15:18→22:38)
[2018-08-07] MEDS: INSULIN GLARGINE [LANTus] (100 UNITS/ML) SYG SC (20:35)
[2018-08-08] MEDS: PANTOPRAZOLE (EC) 40 MG TAB PO (05:35)
[2018-08-08] MEDS: OXYCODONE/ACETAMINOPHEN (5/325) TAB PO ×3 (05:37→16:01)
[2018-08-08 05:52] LABS: ADD MAN DIFF? NO
[2018-08-08 05:57] LABS: WHITE BLOOD COUNT 12.2 10^3/ul (4.8-10.8)
[2018-08-08 05:57] LABS: BASOPHIL # 0.1 10^3/ul (0.0-0.1); BASOPHILS % 0.4 % (0.0-2.0); EOSINOPHILS # 0.5 10^3/ul (0.0-0.5); EOSINOPHILS % 3.7 % (0.0-7.0); HEMATOCRIT 29.4 % (42.0-52.0); HEMOGLOBIN 9.7 g/dl (14.0-18.0); LYMPHOCYTES # 1.8 10^3/ul (0.8-2.9); LYMPHOCYTES % 14.8 % (15.0-51.0); MEAN PLATELET VOLUME 8.6 fl (7.4-10.4); MONOCYTES % 8.6 % (0.0-11.0); NEUTROPHIL # 8.7 10^3/ul (1.6-7.5); NEUTROPHILS % 71.8 % (39.0-77.0); PLATELET COUNT 320 10^3/UL (140-415); RED BLOOD COUNT 3.34 10^6/ul (4.70-6.10); RED CELL DISTRIBUTION WIDTH 14.4 % (11.5-14.5)
[2018-08-08 06:34] LABS: ANION GAP 8 (5-13); BLOOD UREA NITROGEN 18 mg/dl (7-20); CALCIUM 8.9 mg/dl (8.4-10.2); CARBON DIOXIDE 28 mmol/L (21-31); CHLORIDE 104 mmol/L (97-110); CREATININE 1.17 mg/dl (0.61-1.24); Estimated GFR > 60 mL/min (>60); GLUCOSE 114 mg/dl (70-220); POTASSIUM 4.4 mmol/L (3.5-5.1); SODIUM 140 mmol/L (135-144)
[2018-08-08] MEDS: INSULIN ASPART [NOVOLOG] 3 ML PEN SC ×6 (07:55→18:10)
[2018-08-08] MEDS: ASPIRIN 81 MG TAB PO (10:06)
[2018-08-08] MEDS: FUROSEMIDE 20 MG INJ IV (10:06)
[2018-08-08] MEDS: METOPROLOL 25 MG TAB PO (10:07)
[2018-08-08] MEDS ORDERED: COLCHICINE 0.6 MG CAP PO (16:00)
[2018-08-08] MEDS: IBUPROFEN 600 MG TAB PO (17:23)
[2018-08-09] MEDS ORDERED: COLCHICINE 0.6 MG CAP PO (09:00)
== END 2018-08-08 18:37 | disposition home health service (06) | DRG 235 ==
LOC: REC 05:18 → TEL 08-05 18:46 → ICU 13:15 → TEL 08-04 14:30
PROVIDERS: Thoracic Surgery (Cardiothoracic Vascular Surgery)
PROC: 021109W Bypass Coronary Artery, Two Arteries from Aorta with Autologous Venous Tissue, Open Approach (ICD-10-PCS; principal; 2018-07-31 07:30)
PROC: 02100Z9 Bypass Coronary Artery, One Artery from Left Internal Mammary, Open Approach (ICD-10-PCS; 2018-07-31 07:30)
PROC: 06BP4ZZ Excision of Right Saphenous Vein, Percutaneous Endoscopic Approach (ICD-10-PCS; 2018-07-31 07:30)
PROC: 5A1221Z Performance of Cardiac Output, Continuous (ICD-10-PCS; 2018-07-31 07:30)
PROC: 30233K1 Transfusion of Nonautologous Frozen Plasma into Peripheral Vein, Percutaneous Approach (ICD-10-PCS; 2018-07-31 07:30)
PROC: 30233R1 Transfusion of Nonautologous Platelets into Peripheral Vein, Percutaneous Approach (ICD-10-PCS; 2018-07-31 07:30)
DX: I25.119 Atherosclerotic heart disease of native coronary artery with unspecified angina pectoris (principal); I50.33 Acute on chronic diastolic (congestive) heart failure; E87.2 Acidosis; I13.0 Hypertensive heart and chronic kidney disease with heart failure and stage 1 through stage 4 chronic kidney disease, or unspecified chronic kidney disease; N18.9 Chronic kidney disease, unspecified; D72.829 Elevated white blood cell count, unspecified; D64.9 Anemia, unspecified; E78.5 Hyperlipidemia, unspecified; E11.22 Type 2 diabetes mellitus with diabetic chronic kidney disease; K40.91 Unilateral inguinal hernia, without obstruction or gangrene, recurrent; E66.9 Obesity, unspecified; I25.82 Chronic total occlusion of coronary artery; Z68.30 Body mass index [BMI] 30.0-30.9, adult; Z87.891 Personal history of nicotine dependence
CPT/HCPCS: 36430; 36592; 36600; 71045; 80048; 80053; 82803; 82962; 83735; 84100; 84443; 85025; 85610; 85730; 86850; 86900; 86901; 86920; 87081; 93005; 93312; 93325; 97110; 97116; 97163; 97530